=== PATIENT | female | born 1945 | race Caucasian/White ===

== ENCOUNTER 2018-04-19 06:30 | Observation (INO) | payer MEDICARE ==
[~2018-04-19] VITALS: Ht 172.7 cm; Wt 81.6 kg
[~2018-04-19 06:30] MED LIST: CARISOPRODOL 3350 MG PO; COREG25 MG PO; DIAZEPAM 10 MG10 M1 PO; EFFEXOR XR150 MG PO; IBUPROFEN 800800 M1 PO; LAMICTAL 25 MG25 M1 PO; NEURONTIN 400400 M1 PO; NORCO 10-325 T1 EACH PO; NORVASC5 MG PO; PERCOCET 10-321 EACH PO; SYNTHROID150 MCG PO
[2018-04-19 07:07] LABS: MCH 29.5 pg (26.0-34.0); MCHC 32.6 g/dL (28.0-37.0); MCV 90.4 fL (80.0-100.0); MPV 7.9 fl. (7.2-11.1); RBC 4.43 mil/uL (4.20-5.00); RDW-CV 13.5 % (10.5-14.5)
[2018-04-19 07:10] LABS: CALCIUM 9.1 mg/dL (8.5-10.1); CREATININE 0.8 mg/dL (0.6-1.3); POTASSIUM 4.1 mmol/L (3.5-5.1)
[2018-04-19 07:20] LABS: ALBUMIN 3.3 g/dL (3.4-5.0); TOTAL BILIRUBIN 0.1 mg/dL (<0.1-1.0)
[2018-04-19 11:15] VITALS: BP 104/60
--- NOTE | 2018-04-19 11:30 | EKG ---
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
--- NOTE | 2018-04-19 13:18 | OP ---
[address] [address] OPERATIVE REPORT Name: MAKENZIE TRINIDAD Room: [address] MMegan#: [id number] Admission: 04/19/18 Attend Phys: Dandre Neely DO Discharge: Date of : 49 Report #: [id number] THIS REPORT FOR: //name// CC: Dandre Handy DATE OF SERVICE: 04/19/2018 PREOPERATIVE DIAGNOSIS: Comminuted, displaced left distal Frykman 5 distal radius fracture. POSTOPERATIVE DIAGNOSIS: Comminuted, displaced left distal Frykman 5 distal radius fracture. SURGERY PERFORMED: Open reduction and internal fixation of left distal radius using [employer] distal plate screw set. SURGEON: Dandre Neely DO MENTAL MEASUREMENTS TEACHER: Fredi Waters DO ANESTHESIA: General anesthetic. ANTIBIOTICS: The patient did receive Ancef 2 g IV preoperatively. She has no drains, no complications, no specimen. ESTIMATED BLOOD LOSS: Minimal. GROSS FINDINGS: Prior to surgery, this patient demonstrated a distal radius fracture that was noted when I saw her in the office on 02/16/2018. The patient was about 8 days following the fracture. The patient denied any numbness or tingling at that time. X-rays demonstrated with this fracture slight neutral ulnar variance was noted and she had osteoporotic bone as well as some comminution dorsally. The patient's intraoperative findings correlated with the same, that is why I elected for an internal fixation to give her buttress, so she would hopefully not collapse further down the road with this fracture. The patient had this done on her opposite arm years ago at [facility]. Post placement of the screw fixation, all these taken demonstrate satisfactory position of the hardware. I do not believe any hardware was in the joint upon all the views taken and upon the motion of the wrist did not feel any obstructions. SURGERY IN DETAIL: The patient was taken to the operating room and placed on table, given the benefit of general anesthetic. She had a well-padded tourniquet placed on the left upper extremity. She did have her ring taken off the left ring finger prior to surgery using an umbilical [place] [address] OPERATIVE REPORT Name: MAKENZIE TRINIDAD Room: [address] M.R.#: [id number] Admission: 04/19/18 Attend Phys: Dandre Neely DO Discharge: Date of : 49 Report #: [id number] the chlorhexidine prep and sterile draping, a timeout was called and verified for this left wrist surgery and approved. The patient, at this stage, had Esmarch to the left upper extremity and tourniquet inflated to 250 mmHg. An incision was made over the FCR volarly with a 15 blade scalpel through skin and subcutaneous tissues with enough expansion to get a plate in place. Skin incision was carried down to the FCR. This was totally freed up and the brachial fascia was released by scissors technique. The next layer of muscle fascia was released off the distal radius and reflected ulnarly with the fracture being exposed removing out some invaginated tissue. At this point in time, once the fracture was visualized, it was definitely distal, so this would be a good case just to give her a buttress for this. Her surgery now continued with trial placement of the plate on the distal radius. X-rays correlate that this is appropriate position. I did go ahead and initially put in the proximal screw, so we directed the plate how we needed to proximally versus distally. Once we verified the plate, again was in good position with the C-arm. All distal locking screws were applied, both thread and peg type. I did go ahead and then finished the proximal 3.5 screws. When all hardware was in place, x-rays were taken for final imaging and again appropriate position was noted. Radial styloid screw appeared appropriate as well. The patient did have copious irrigation with normal saline at this point in time prior to closure, maintained hemostasis after tourniquet was released. Subcutaneous tissues were closed with 2-0 Monocryl. I then went ahead and closed the skin with a running 2-0 nylon. A sterile Xeroform, 4 x 4s, Kerlix, soft roll, volar splint and Alessandro wrap dressing was applied, transferred off table and taken to recovery room in stable condition. I attest I was present for all critical aspects of surgery and needle, instrument, sponge counts correct. <ELECTRONICALLY SIGNED> By: Dandre Neely DO 04/19/18 1318 [id number] Neely DO /ismael
[2018-04-19 15:25] VITALS: BP 115/70
--- NOTE | 2018-04-19 16:57 | NUR ---
ALERT AND ORIENTED X4. UP WITH ASSIST X1 WITH GAIT BELT. IV IS PATENT AND SALINE LOCKED. PAIN BEING MANAGED WITH IV MEDICATION GIVEN IN PACU AND PO MEDICATION GIVEN SINCE ARRIVING TO FLOOR. DENIES NAUSEA. ARM IN TARYN WRAP AND ELEVATED ON PILLOW. VSS ON ROOM AIR. HOURLY ROUNDS HAVE BEEN MAINTAINED THROUGHOUT SHIFT. CALL LIGHT IS WITHIN REACH. NURSING WILL CONTINUE TO MONITOR.
--- NOTE | 2018-04-19 17:00 | NUR ---
PATIENT ARRIVED TO UNIT AT 1100. ALERT AND ORIENTED X4. IV PATENT AND SALINE LOCKED. PAIN BEING MANAGED WITH IV MEDICATION GIVEN IN PACU. DENIES NAUSEA. CAP-NO IN PLACE. ARM IN TARYN WRAP ELEVATED ON PILLOW. VSS ON ROOM AIR. PATIENT HAS BEEN ORIENTED TO ROOM. CALL LIGHT IS WITHIN REACH. NURSING WILL CONTINUE TO MONITOR.
[2018-04-19 20:45] VITALS: BP 123/70
[2018-04-19 23:57] VITALS: BP 124/74
[2018-04-20 04:34] VITALS: BP 141/82
--- NOTE | 2018-04-20 06:54 | NUR ---
PATIENT HAS SLEPT WELL THROUGHOUT THE NIGHT. VSS ON 2L 02 VIA NASAL CANNULA AND CAPNO. PAIN WELL CONTROLLED AND MEDICATIONS GIVEN ORDERED AND CHARTED. PATIENT IS UP WITH SBA TO THE BATHROOM AND STEADY. DRESSING TO LEFT WRIST C/D/I. PATIENT INSTRUCTED TO USE CALL LIGHT WHEN NEEDING ASSISTANCE. HOURLY ROUNDS MADE. WILL CONTINUE WITH PLAN OF CARE AND NURSING TO MONITOR.
[2018-04-20 11:47] VITALS: BP 144/77
--- NOTE | 2018-04-20 13:07 | NUR ---
PATIENT LEFT UNIT AT 1230. ALERT AND ORIENTED X4. UP WITH STAND BY ASSIST IN ROOM. IV DC'D. PAIN BEING MANAGED WITH PO PAIN MEDICATION THIS AM. PATIENT DROVE SELF AND IS REFUSING TO LET US ARRANGE TAXI OR ALLOW SOMEONE TO PICK PATIENT UP. PATIENT LEFT 3 1/2 HOURS AFTER LAST PAIN MEDICATION RECIEVED. EDUCATED ON RISKS. BOOKING POLICE OFFICER NOTIFIED. ALL PERSONAL ITEMS LEFT WITH PATIENT. DISCHARGE INSTRUCTIONS SENT WITH PATIENT. VSS ON ROOM AIR. HOURLY ROUNDS HAVE BEEN MAINTAINED THROUGHOUT SHIFT. LEFT VIA CAR.
[2018-04-20 13:19] VITALS: BP 144/77
== END 2018-04-20 12:30 | disposition home or self-care (01) ==
LOC: M.SUR 06:30 → M.ORTHSURG 09:20 → M.TBA 09:20 → M.ORTHSURG 11:03 → M.SUR 11:35 → M.ORTHSURG 04-20 12:30
PROVIDERS: ADMIT Orthopaedic Surgery
DX: S52.502A Unspecified fracture of the lower end of left radius, initial encounter for closed fracture (principal); X58.XXXA Exposure to other specified factors, initial encounter; Y93.89 Activity, other specified; Y92.89 Other specified places as the place of occurrence of the external cause; Z79.899 Other long term (current) drug therapy

== ENCOUNTER → 2018-09-13 | Outpatient (CLI) | payer MEDICARE | LOC: M.MRI 11:10 | DX: S83.242A Other tear of medial meniscus, current injury, left knee, initial encounter (principal); M25.762 Osteophyte, left knee; X58.XXXA Exposure to other specified factors, initial encounter; Y93.89 Activity, other specified; Y92.89 Other specified places as the place of occurrence of the external cause; Y99.8 Other external cause status ==